=== PATIENT | female | born 1940 | race Caucasian/White ===

== ENCOUNTER 2024-02-19 16:17 | Emergency (ER) | payer OTHER ==
[2024-02-19 16:51] VITALS: BP 167/93; PULSE 80; RESP 16; TEMP 97.8; BMI 21.9
== END 2024-02-19 18:58 | disposition home or self-care (01) ==
LOC: FER 16:17
DX: S02.2XXA Fracture of nasal bones, initial encounter for closed fracture (principal); W18.30XA Fall on same level, unspecified, initial encounter
CPT/HCPCS: 70450-TC; 70486-TC; 72125-TC; 99284-25